=== PATIENT | male | born 1995 | race Caucasian/White ===

== ENCOUNTER 2021-01-22 12:35 | Emergency (ER) | payer OTHER ==
[2021-01-22] MEDS ORDERED: BACTROBAN OINT22 GM EXT (16:07)
[2021-01-22] MEDS ORDERED: NAPROXEN500 MG PO (16:07)
== END 2021-01-22 16:30 | disposition home or self-care (01) ==
LOC: ER1 12:35
DX: S41.011A Laceration without foreign body of right shoulder, initial encounter (principal); S81.012A Laceration without foreign body, left knee, initial encounter; S46.221A Laceration of muscle, fascia and tendon of other parts of biceps, right arm, initial encounter; S01.311A Laceration without foreign body of right ear, initial encounter; F17.290 Nicotine dependence, other tobacco product, uncomplicated; W11.XXXA Fall on and from ladder, initial encounter; Y92.009 Unspecified place in unspecified non-institutional (private) residence as the place of occurrence of the external cause; Z23 Encounter for immunization
CPT/HCPCS: 12005; 12011; 71046; 73564; 90471; 99283

== ENCOUNTER 2021-02-06 19:16 | Emergency (ER) | payer OTHER ==
[~2021-02-06 19:16] MED LIST: BACTROBAN OINT22 GM EXT; NAPROXEN500 MG PO
[2021-02-06] MEDS ORDERED: IBUPROFEN600 MG PO (20:55)
== END 2021-02-06 21:01 | disposition home or self-care (01) ==
LOC: ER1 19:16
DX: S83.411A Sprain of medial collateral ligament of right knee, initial encounter (principal); S00.83XA Contusion of other part of head, initial encounter; Z86.19 Personal history of other infectious and parasitic diseases; F17.200 Nicotine dependence, unspecified, uncomplicated; W11.XXXA Fall on and from ladder, initial encounter; Y92.009 Unspecified place in unspecified non-institutional (private) residence as the place of occurrence of the external cause
CPT/HCPCS: 70486; 73564; 99284

== ENCOUNTER 2021-03-09 10:55 | Emergency (ER) | payer OTHER ==
[~2021-03-09 10:55] MED LIST changes: +IBUPROFEN600 MG PO
[2021-03-09] MEDS ORDERED: BENADRYL 25MG C25 MG PO (12:55)
[2021-03-09] MEDS ORDERED: MEDROL DOSEPAK 24 MG PO (12:55)
== END 2021-03-09 14:29 | disposition home or self-care (01) ==
LOC: ER1 10:55
DX: L27.0 Generalized skin eruption due to drugs and medicaments taken internally (principal); T39.395A Adverse effect of other nonsteroidal anti-inflammatory drugs [NSAID], initial encounter; T39.315A Adverse effect of propionic acid derivatives, initial encounter; F17.200 Nicotine dependence, unspecified, uncomplicated
CPT/HCPCS: 96372; 96374; 96375; 99282; J0171; J1200; J2930